=== PATIENT | male | born 1950 | race Caucasian/White ===

== ENCOUNTER → 2022-09-27 | Outpatient (CLI) | payer BC, MEDICARE ==
--- NOTE | 2022-10-01 13:14 | CA ---
Transthoracic Echo Report Name: Eric Uribe Age: 72 Gender: M : 1950 Exam Date: 09/27/2022 14:52 Exam Location: [place] [facility] Ht (in): 72 Wt (lb): 200 Ordering Physician: Kash Corea MD Attending/Referring Phys: Milk Bottler Bernarda Cid RDCS Procedure CPT: Indications: R01.1 Cardiac Hx: Technical Quality: Fair Contrast 1: Total Dose (mL): Contrast 2: Total Dose (mL): MEASUREMENTS (Male / Female) Normal Values 2D ECHO LV Diastolic Diameter PLAX 4.0 cm 4.2 - 5.9 / 3.9 - 5.3 cm LV Systolic Diameter PLAX 2.3 cm IVS Diastolic Thickness 1.2 cm 0.6 - 1.0 / 0.6 - 0.9 cm LVPW Diastolic Thickness 1.0 cm 0.6 - 1.0 / 0.6 - 0.9 cm LV Relative Wall Thickness 0.6 RV Internal Dim ED PLAX 3.9 cm LA Volume 60.2 cm??? 18 - 58 / 22 - 52 cm??? M-MODE Aortic Root Diameter MM 3.1 cm LA Systolic Diameter MM 4.3 cm LA Ao Ratio MM 1.4 AV Cusp Separation MM 1.9 cm DOPPLER AV Peak Velocity 166.7 cm/s AV Peak Gradient 11.1 mmHg AV Mean Velocity 102.3 cm/s AV Mean Gradient 5.0 mmHg AV Velocity Time Integral 30.4 cm AI Peak Velocity 327.6 cm/s AI Peak Gradient 42.9 mmHg AI Pressure Half Time 828.4 ms LVOT Peak Velocity 179.9 cm/s LVOT Peak Gradient 12.9 mmHg LVOT Velocity Time Integral 30.5 cm MV Area PHT 2.8 cm??? Mitral E Point Velocity 63.0 cm/s Mitral A Point Velocity 93.1 cm/s Mitral E to A Ratio 0.7 MV Deceleration Time 267.5 ms MV E' Velocity 6.5 cm/s Mitral E to MV E' Ratio 9.7 TR Peak Velocity 176.9 cm/s TR Peak Gradient 12.5 mmHg Right Ventricular Systolic Press 17.5 mmHg FINDINGS Left Ventricle Mildly increased left ventricular wall thickness. Left ventricular cavity size normal. Normal left ventricular systolic function with no obvious regional wall motion abnormalities. Left ventricular ejection fraction is estimated at 55-60 %. Right Ventricle Mild right ventricular dilatation. Right ventricular systolic pressure within normal limits. Right Atrium Normal right atrial size. Left Atrium Mildly increased left atrial volume. Mildly increased left atrial area. Mitral Valve Structurally normal mitral valve. Mitral valve thickened. Mild mitral regurgitation. Aortic Valve Trileaflet aortic valve. No aortic stenosis. mild aortic regurgitation. Tricuspid Valve Structurally normal tricuspid valve. Mild tricuspid regurgitation. Pulmonic Valve Trace pulmonic regurgitation. Pericardium No pericardial effusion. Aorta Normal size aortic root and proximal ascending aorta. CONCLUSIONS 1. Normal left ventricle size and systolic function 2. Mild mitral, aortic and tricuspid regurgitation 3. Normal right ventricular systolic pressure with mild dilatation of the right ventricle Previewed by: Dr. Nurys Nunn MD (Electronically Signed) Final Date: 01 October 2022 13:13
== END | disposition home or self-care (01) ==
LOC: RADECHMAIN 14:46
PROVIDERS: ATTEND Family Medicine
DX: I08.1 Rheumatic disorders of both mitral and tricuspid valves (principal); R01.1 Cardiac murmur, unspecified
CPT/HCPCS: 93306